=== PATIENT | male | born 1930 | race Caucasian/White ===

== ENCOUNTER 2019-12-30 21:53 | Emergency (ER) | payer OTHER ==
[~2019-12-30] VITALS: Ht 175.3 cm; Wt 81.6 kg
[~2019-12-30 21:53] MED LIST: EXELON1 PATCH .1; MECLIZINE HCL12.5 MG; NORVASC5 MG
[2019-12-30] MEDS ORDERED: FINASTERIDE5 MG (21:57)
[2019-12-30] MEDS ORDERED: TAMS0.4C (21:57)
[2019-12-30] MEDS ORDERED: EXELON1 EACH (21:58)
[2019-12-30] MEDS ORDERED: SIMVASTATIN5 MG (21:58)
[2019-12-30] MEDS ORDERED: VITAMIN B-121000 MCG (21:59)
[2019-12-30] MEDS ORDERED: IRON236 MG (21:59)
[2019-12-30] MEDS ORDERED: VITAMINA D3 (21:59)
[2019-12-31] MEDS ORDERED: KEFLEX500 MG PO (06:18)
== END 2019-12-31 07:48 | disposition home or self-care (01) ==
LOC: ER 21:53
DX: N39.0 Urinary tract infection, site not specified (principal); K59.09 Other constipation